=== PATIENT | male | born 1955 | race American Indian/Alaskan Native ===

== ENCOUNTER 2019-02-25 22:56 | Emergency (ER) | payer OTHER ==
[2019-02-25] MEDS ORDERED: CATAPRES ONE (23:27)
[2019-02-25] MEDS ORDERED: TYLENOL ONE (23:28)
[2019-02-25] MEDS ORDERED: CATAPRES PO ONE (23:31)
[2019-02-25] MEDS ORDERED: TYLENOL PO ONE (23:32)
[2019-02-26] MEDS ORDERED: MORPHINE IV ONE (00:44)
[2019-02-26] MEDS ORDERED: NACL 0.9% 500 ML 500 ML IV ONE (00:44)
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
[2019-02-26] MEDS ORDERED: NACL 0.9% 1000 ML 1,000 ML ONE (00:57)
[2019-02-26 01:23] LABS: Hematocrit 45.1 % (35.5-45.6); Hemoglobin 15.3 gm/dl (11.8-15.2); Mean Corpuscular HGB Conc 34 % (32-34); Mean Corpuscular Volume 84 fl (84-94); Platelet Count 203 K/mm3 (140-440); Red Blood Count 5.35 M/mm3 (3.65-5.03); Red Cell Distribution Width 14.8 % (13.2-15.2)
--- NOTE | 2019-02-26 01:40 | XRay Report ---
PROCEDURE: Cervical spine. TECHNIQUE: 3 views. HISTORY: Neck pain. COMPARISONS: None. FINDINGS: The cervical vertebrae have normal height and alignment. There are no fractures. There is no subluxat ion. There is moderate disc space narrowing at C5-6. The prevertebral soft tissues have normal thickn ess. IMPRESSION: Degenerative disc disease at C5-6. This document is electronically signed by David Amado MD., February 26 2019 01:38:31 AM ET
--- NOTE | 2019-02-26 01:41 | XRay Report ---
PROCEDURE: Right tibia and fibula. TECHNIQUE: AP views. HISTORY: Right lower extremity pain. COMPARISONS: None. FINDINGS: The study is limited with a single frontal projection. The bones appear intact. The joint spaces are unremarkable. The soft tissues are unremarkable. IMPRESSION: Limited study. No abnormality identified. This document is electronically signed by David Amado MD., February 26 2019 01:39:39 AM ET
--- NOTE | 2019-02-26 01:43 | XRay Report ---
PROCEDURE: Left tibia and fibula. TECHNIQUE: AP views. HISTORY: Left lower extremity pain. COMPARISONS: None. FINDINGS: The study is limited with a single frontal projection. The bones appear intact. The joint spaces appe ar normal. The soft tissues are unremarkable. IMPRESSION: Limited study. No abnormality identified. This document is electronically signed by Davdi Amado MD., February 26 2019 01:40:55 AM ET
[2019-02-26 01:44] LABS: Alanine Aminotransferase 33 units/L (7-56); Albumin 4.3 g/dL (3.9-5); BUN/Creatinine Ratio 12; Blood Urea Nitrogen 13 mg/dL (9-20); Calcium 9.4 mg/dL (8.4-10.2); Hemolysis Index 19
--- NOTE | 2019-02-26 01:45 | XRay Report ---
PROCEDURE: Right-sided ribs. TECHNIQUE: AP and oblique views. HISTORY: Right rib pain. COMPARISONS: None. FINDINGS: The right-sided ribs appear intact. There are no fractures identified. There is no evidence of a pneu mothorax. IMPRESSION: Normal study. This document is electronically signed by David mAado MD., February 26 2019 01:42:53 AM ET
[2019-02-26 01:48] LABS: INR 1.06 (0.87-1.13)
[2019-02-26 01:49] LABS: Partial Thromboplastin Time 27.3 Sec. (24.2-36.6)
--- NOTE | 2019-02-26 02:00 | XRay Report ---
PROCEDURE: XR SHOULDER 2+V RT TECHNIQUE: 3 views of the right shoulder HISTORY: Right shoulder pain COMPARISONS: None FINDINGS: The glenohumeral and acromioclavicular joints are normally aligned. The bones are normally mineralize d. The soft tissues are unremarkable. IMPRESSION: Normal shoulder. This document is electronically signed by Reyna Stevenson MD., February 26 2019 01:59:15 AM ET
[2019-02-26 02:59] LABS: Bilirubin,Urine NEG (Negative); Blood,Urine SM (Negative); Color,Urine Straw (Yellow); Mucus,Urine FEW /HPF; Protein,Urine <15 mg/dL mg/dL (Negative); Urobilinogen,Urine < 2.0 mg/dL (<2.0)
[2019-02-26 03:54] VITALS: BP 145/93
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
== END 2019-02-26 05:40 | disposition home or self-care (01) ==
LOC: ED 22:56
DX: I10 Essential (primary) hypertension (principal); M25.511 Pain in right shoulder; M79.661 Pain in right lower leg; M79.662 Pain in left lower leg; R07.81 Pleurodynia; M54.2 Cervicalgia; M79.10 Myalgia, unspecified site; F41.9 Anxiety disorder, unspecified; R10.11 Right upper quadrant pain; Z79.1 Long term (current) use of non-steroidal anti-inflammatories (NSAID); V49.49XA Driver injured in collision with other motor vehicles in traffic accident, initial encounter; Y93.89 Activity, other specified; Y92.488 Other paved roadways as the place of occurrence of the external cause; Y99.8 Other external cause status
CPT/HCPCS: 36415; 71100; 72040; 73030; 73590; 74177; 80053; 81001; 83690; 85027; 85610; 85730; 96374; 99285; J2270; J7030; Q9967